=== PATIENT | female | born 1950 | race Caucasian/White ===

== ENCOUNTER 2017-10-11 13:39 | Inpatient (IN) | payer OTHER ==
[~2017-10-11] VITALS: Ht 170.2 cm; Wt 50.9 kg
--- NOTE | ~2017-10-11 | CON ---
[place], [place] REPORT OF CONSULTATION NAME: JOS BEDOYA UNIT #: [id number] ROOM: 524 DOCTOR: SANDY LAKE MD BIRTHDATE: [birth year] DOS: 10/13/2017 PSYCHIATRIC CONSULTATION CHIEF COMPLAINT: "They went over there, ya, I know him, that was ____." HISTORY OF PRESENT ILLNESS: This is a 66-year-old female who presented to the Emergency Room with a significant altered mental status. Apparently, she was found on the side of the road near her residence holding her dog. She was confused and speaking gibberish, nonsensical words. EMS brought her to the Emergency Room to be evaluated. She reports that she was taken to [place] by a man who now lives in [facility]. She was found to be very confused and muttering indiscernibly. Since her admission to the medical floor at [facility], she has continued to be extremely confused, lack safety awareness, does not necessarily redirect. She threw her food tray at the nurse and has required significant redirection and multiple PRNs. PAST MEDICAL HISTORY: Remarkable for being on clomipramine, clonazepam, Luvox and Effexor apparently at home as well as a combination of morphine with naltrexone. Unclear whether or not she has a significant substance abuse history or not. MENTAL STATUS: My mental status is limited because she is so grossly confused and was talking nonsensical. She was not able to answer a single one of my questions. She did respond to her name. Beyond that she attempted on multiple occasions to get out of bed, triggering her bed alarm. 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 PLAN: I have discontinued her Restoril to limit what medication she can potentially have. I will give p.r.n. orders of Ativan 1 mg p.o. or IM q. 4 hours as needed, Geodon 20 mg IM q. 4 hours max 40 mg in a day, also start her on Seroquel 50 mg t.i.d. and Depakote 500 mg t.i.d. in order to decrease some of this mood lability and impulsivity. Should that she not clear, she certainly would represent a good candidate for transfer to the [facility] for further organic workup and stabilization. SANDY LAKE MD CM:CONSTR:REPORT OF CONSULTATION 1112 10/13/17 1121 interface
[~2017-10-11 13:39] MED LIST: PERCOCET 325 MG1 TA2 PO; QUETIAPINE FUM200 M2 PO
[2017-10-11 13:40] VITALS: BP 140/72
[2017-10-11 14:17] LABS: BASO % 0.7 % (0.0-1.0); EOS % 0.7 % (1.0-4.0); HEMATOCRIT 37.5 % (37.0-47.0); HEMOGLOBIN 12.5 g/dl (12.0-16.0); LYMPH # 0.9 10*3/uL (1.3-4.4); LYMPH % 20.8 % (27.0-41.0); MEAN CELL VOLUME 94.2 fl (81.0-99.0); MEAN CORPUSCULAR HGB 31.4 pg (27.0-31.0); MEAN CORPUSCULAR HGB CONC 33.3 g/dl (33.0-37.0); MEAN PLATELET VOLUME 9.7 fl (9.6-12.3); MONO # 0.2 10*3/uL (0.1-1.0); MONO % 4.7 % (3.0-9.0); NEUT # 3.2 10*3/uL (2.3-7.9); NEUT % 72.9 % (47.0-73.0); PLATELET COUNT AUTOMATED 157 10*3/uL (130-400); RED BLOOD COUNT 3.98 10*6/uL (4.10-5.10); RED CELL DISTRI WIDTH 13.3 % (0-14.5); WHITE BLOOD COUNT 4.4 10*3/uL (4.8-10.8)
[2017-10-11 14:35] LABS: ALBUMIN 3.7 gm/dl (3.1-4.5); ALKALINE PHOSPHATASE 122 U/L (45-117); BUN 12 mg/dl (7-24); CHLORIDE 104 mmol/L (98-107); CREATININE 0.98 mg/dL (0.55-1.02); POTASSIUM 3.7 mmol/L (3.5-5.1); SGOT/AST 24 IU/L (3-35); SGPT/ALT 17 U/L (12-78); SODIUM 138 mmol/L (136-145); TOTAL PROTEIN 7.3 gm/dL (6.4-8.2)
[2017-10-11 14:36] VITALS: BP 151/73
[2017-10-11 14:39] LABS: ACETAMINOPHEN (TYLENOL) < 2.0 ug/ml (10-30); ETHYL ALCOHOL < 3.0 mg/dl (<3)
[2017-10-11 14:46] LABS: BILIRUBIN NEGATIVE (NEGATIVE); BLOOD NEGATIVE (NEGATIVE); CLARITY CLEAR (CLEAR); COLOR YELLOW (YELLOW); GLUCOSE NEGATIVE (NEGATIVE); KETONE 1+ (NEGATIVE); LEUKO ESTERASE 1+ (NEGATIVE); NITRITE NEGATIVE (NEGATIVE); UROBILINOGEN 0.2 E.U./dl (0.2-1.0)
[2017-10-11 14:55] LABS: BACTERIA 1+; EPITHELIAL CELLS TNTC; RBC 0-2 rbc/hpf (0-2); URINE AMPHETAMINES < 1000 (1000ng/ml); URINE BARBITURATES < 200 (200ng/ml); URINE BENZODIAZEPINES < 200 (200ng/ml); URINE CANNABINOIDS (THC) < 50 (50ng/ml); URINE COCAINE < 300 (300ng/ml); URINE METHADONE < 300 (300ng/ml); URINE OPIATES > 300 (300ng/ml)
[2017-10-11 15:00] LABS: URINE PHENCYCLIDINE < 25 (25ng/ml)
[2017-10-11 16:19] VITALS: BP 125/88
[2017-10-11 17:00] VITALS: BP 149/68
[2017-10-11] MEDS ORDERED: EFFEXOR XR150 MG PO (17:19)
[2017-10-11] MEDS ORDERED: KLONOPIN0.5 MG PO (17:19)
[2017-10-11] MEDS ORDERED: CELEBREX100 MG PO (17:20)
[2017-10-11] MEDS ORDERED: NEURONTIN800 MG PO (17:20)
[2017-10-11] MEDS ORDERED: FLUVOXAMINE100 MG PO (17:24)
[2017-10-11] MEDS ORDERED: EMBEDA ER 20-01 EACH PO (17:24)
[2017-10-11] MEDS ORDERED: Anafranil25 MG PO (17:25)
[2017-10-11 20:00] VITALS: BP 127/85
[2017-10-12] VITALS: BP 129/98
[2017-10-12 07:40] LABS: BASO % 0.3 % (0.0-1.0); EOS # 0.1 10*3/uL (0.0-0.4); EOS % 1.9 % (1.0-4.0); HEMATOCRIT 33.7 % (37.0-47.0); HEMOGLOBIN 11.4 g/dl (12.0-16.0); LYMPH # 1.4 10*3/uL (1.3-4.4); LYMPH % 22.8 % (27.0-41.0); MEAN CELL VOLUME 92.6 fl (81.0-99.0); MEAN CORPUSCULAR HGB 31.3 pg (27.0-31.0); MEAN CORPUSCULAR HGB CONC 33.8 g/dl (33.0-37.0); MEAN PLATELET VOLUME 10.2 fl (9.6-12.3); MONO # 0.5 10*3/uL (0.1-1.0); MONO % 8.2 % (3.0-9.0); NEUT # 4.2 10*3/uL (2.3-7.9); NEUT % 66.3 % (47.0-73.0); PLATELET COUNT AUTOMATED 156 10*3/uL (130-400); RED BLOOD COUNT 3.64 10*6/uL (4.10-5.10); RED CELL DISTRI WIDTH 13.3 % (0-14.5); WHITE BLOOD COUNT 6.3 10*3/uL (4.8-10.8)
[2017-10-12 08:00] VITALS: BP 138/83
[2017-10-12 08:04] LABS: ALBUMIN 3.1 gm/dl (3.1-4.5); BUN 12 mg/dl (7-24); CHLORIDE 108 mmol/L (98-107); CHOLESTEROL 132 mg/dL (<200); CREATININE 0.86 mg/dL (0.55-1.02); PHOSPHOROUS 2.8 mg/dL (2.5-4.9); POTASSIUM 3.3 mmol/L (3.5-5.1); SGOT/AST 17 IU/L (3-35); SGPT/ALT 12 U/L (12-78); SODIUM 140 mmol/L (136-145); TOTAL PROTEIN 6.3 gm/dL (6.4-8.2); TRIGLYCERIDES 48 mg/dl (<150); VLDL CHOLESTEROL 10 mg/dL (6-40)
[2017-10-12 08:10] LABS: ALKALINE PHOSPHATASE 105 U/L (45-117); HDL CHOLESTEROL 64 mg/dl (40-60); LDL CHOLESTEROL 58 mg/dL (9-159)
[2017-10-12 16:00] VITALS: BP 160/79
[2017-10-12 20:00] VITALS: BP 155/76
[2017-10-13] VITALS: BP 127/64
[2017-10-13 07:48] LABS: BASO % 0.7 % (0.0-1.0); EOS # 0.2 10*3/uL (0.0-0.4); EOS % 3.7 % (1.0-4.0); HEMATOCRIT 34.3 % (37.0-47.0); HEMOGLOBIN 11.5 g/dl (12.0-16.0); LYMPH # 1.5 10*3/uL (1.3-4.4); LYMPH % 38.1 % (27.0-41.0); MEAN CELL VOLUME 93.5 fl (81.0-99.0); MEAN CORPUSCULAR HGB 31.3 pg (27.0-31.0); MEAN CORPUSCULAR HGB CONC 33.5 g/dl (33.0-37.0); MEAN PLATELET VOLUME 10.3 fl (9.6-12.3); MONO # 0.4 10*3/uL (0.1-1.0); MONO % 9.5 % (3.0-9.0); NEUT # 1.9 10*3/uL (2.3-7.9); NEUT % 47.8 % (47.0-73.0); PLATELET COUNT AUTOMATED 161 10*3/uL (130-400); RED BLOOD COUNT 3.67 10*6/uL (4.10-5.10); RED CELL DISTRI WIDTH 13.5 % (0-14.5)
[2017-10-13 08:00] VITALS: BP 149/86
[2017-10-13 08:20] LABS: ALBUMIN 3.1 gm/dl (3.1-4.5); BUN 10 mg/dl (7-24); CHLORIDE 108 mmol/L (98-107); POTASSIUM 3.1 mmol/L (3.5-5.1); SGOT/AST 18 IU/L (3-35); SODIUM 142 mmol/L (136-145); TOTAL PROTEIN 6.1 gm/dL (6.4-8.2)
[2017-10-13 08:34] LABS: ALKALINE PHOSPHATASE 101 U/L (45-117); SGPT/ALT 13 U/L (12-78)
[2017-10-13 12:00] VITALS: BP 156/88
[2017-10-13 14:16] LABS: VITAMIN D, 25-HYDROXY 23.5 ng/mL (30-100)
[2017-10-13 16:00] VITALS: BP 140/79
[2017-10-13 20:00] VITALS: BP 163/69
[2017-10-14] VITALS: BP 157/80
[2017-10-14 08:00] VITALS: BP 136/71
[2017-10-14 12:00] VITALS: BP 112/74
[2017-10-14] MEDS ORDERED: DIVALPROEX SOD500 MG PO (15:27)
[2017-10-14] MEDS ORDERED: QUETIAPINE FUMA50 M1 PO (15:27)
[2017-10-14] MEDS ORDERED: DULCOLAX5 M1 PO (21:22)
== END 2017-10-14 16:31 | disposition home health service (06) | DRG 689 ==
LOC: ED → 5E 16:12 → EDHOLD 16:12 → 4E 16:27 → 5E 18:51
PROVIDERS: Internal Medicine; Nurse Practitioner Family; Psychiatry & Neurology Psychiatry
DX: N30.00 Acute cystitis without hematuria (principal); G93.41 Metabolic encephalopathy; R65.10 Systemic inflammatory response syndrome (SIRS) of non-infectious origin without acute organ dysfunction; F23 Brief psychotic disorder; Z68.1 Body mass index [BMI] 19.9 or less, adult; R00.0 Tachycardia, unspecified; R41.0 Disorientation, unspecified; R63.6 Underweight; R06.82 Tachypnea, not elsewhere classified; R03.0 Elevated blood-pressure reading, without diagnosis of hypertension; Z79.899 Other long term (current) drug therapy

== ENCOUNTER 2017-10-14 15:06 | Inpatient (IN) | payer OTHER ==
[~2017-10-14] VITALS: Ht 170.1 cm; Wt 50.8 kg
--- NOTE | ~2017-10-14 | PR ---
[place], [place] PROGRESS NOTE NAME: JOS BEDOYA UNIT #: [id number] ROOM: 311 DOCTOR: SANDY LAKE MD BIRTHDATE: [birth year] DOS: 10/23/2017 CHIEF COMPLAINT: "I just want some warmth." SUMMARY OF THE VISIT: The patient was sitting in the dining area, engaging in group activities. She stopped and engaged in brief conversation with me. She stated that she would just like some warmth. When I offered to get her blanket, she nodded; no she wanted to be outside in the sunshine. She is continuing to ask when she is going to be able to leave the hospital and go home. Attempts to reorient and educate her regarding the process that is occurring are met with her not understanding. She does not seem to remember the explanation from day to day. She continues to be grossly confused, especially for short term events. MENTAL STATUS: She is alert and oriented to person, place, not necessarily time. Mood does seem to be trending towards euthymia. Affect is more appropriate. There is no belén or psychosis. Short term memory continues to be problematic. PLAN: I will go ahead and increase Namenda to 10 mg in the morning and 5 mg at night, augmenting the effectiveness of the Exelon patch, continue to engage in individual and silva milieu activity, returning then to the least restrictive environment when psychiatrically stable. SANDY LAKE MD CM:PNTRANS 1102 1130 SANDY LAKE MD 10/23/17 1130 interface
--- NOTE | ~2017-10-14 | PR ---
[place], [place] PROGRESS NOTE NAME: JOS BEDOYA UNIT #: [id number] ROOM: 309 DOCTOR: SANDY LAKE MD BIRTHDATE: [birth year] DOS: 10/17/2017 CHIEF COMPLAINT: "Yeah, I am in some pain, but I don't wanna be drugged up." SUMMARY OF THE VISIT: The patient was interviewed as she sat in the dining area at the end of the room on a couch. She engaged readily in conversation. She continues to be very vague, though, somewhat evasive. She has a hard time filling in details and she does confabulate some. She is pleasant for the most part, mildly blunted and depressed. MENTAL STATUS: She is alert and oriented to person, place, but not necessarily time. Mood does still seem to be depressed with anxious overtones. She has a great deal of processing difficulty and short term memory remains poor. PLAN: I will go ahead and check a valproic acid level in the a.m. to ensure that it is therapeutic. Given her cognitive loss, I will start her on Exelon patch 4.6 mg a day, maintain her other psychotropics, engage in individual and silva milieu activity, returning to the least restrictive environment when stable. SANDY LAKE MD CM:PNTRANS 7 SANDY LAKE MD 10/17/1738 interface
--- NOTE | ~2017-10-14 | PR ---
[place], [place] PROGRESS NOTE NAME: JOS BEDOYA UNIT #: [id number] ROOM: 317 DOCTOR: SANDY LAKE MD BIRTHDATE: [birth year] DOS: 10/20/2017 CHIEF COMPLAINT: "I am not sleeping, but I do want to go home." HISTORY OF THE VISIT: The patient was interviewed in the dining area. She first complained to me that she did not sleep well last night and then also complained that she has persistent diarrhea. Otherwise, she is very fixated on going home. She has little to no insight into her behavior or to the events that led to her being admitted here. MENTAL STATUS: She is alert and oriented to person, place, not necessarily time. Mood does seem to be trending more towards euthymia, although there is a depressive component present that I am noticing is more prevalent. There is no hypomania or belén. There are no overt auditory or visual hallucinations. Short term memory is exceptionally poor. PLAN: I will augment her Exelon patch with Namenda 5 mg at bedtime. I will add Remeron 15 mg at bedtime to improve sleep and appetite and combat depression and renew her p.r.n. Ativan in case she requires intervention. We will continue to engage her in individual and silva milieu activity, returning to the least restrictive environment when stable. SANDY LAKE MD CM:PNTRANS 1028 1033 SANDY LAKE MD 10/20/17 1033 interface
--- NOTE | ~2017-10-14 | PR ---
[place], [place] PROGRESS NOTE NAME: JOS BEDOYA UNIT #: [id number] ROOM: 317 DOCTOR: SANDY LAKE MD BIRTHDATE: [birth year] DOS: 10/19/2017 CHIEF COMPLAINT: "I just want to go home." SUMMARY OF THE VISIT: The patient was interviewed in her room. She was sitting at the edge of the bed and got up, walked me to the door. She reports that she is feeling better, could not tell me how long she has been here or what she had for breakfast, but states she is ready to go home. When I told her that this would not happen today, she was fine and did not push the issue. She continues for the most part to have gaps in memory. MENTAL STATUS: She is alert and oriented with time gaps. Mood does seem to be improving and is more stable. There is no hypomania, belén or psychosis. Short term memory has gaps. PLAN: I will go ahead and increase the Exelon patch to its maximum dose of 13.3 mg a day and then next consider augmenting with Namenda. At this point, we are awaiting ____ and all of the paperwork that needs to be done in order to get her safely placed into a long-term care facility. SANDY LAKE MD CM:PNTRANS 1040 1046 SANDY LAKE MD 10/19/17 1045 interface
--- NOTE | ~2017-10-14 | WRIGHTHP ---
[place], [place] PATIENT HISTORY AND PHYSICAL EXAM [id number] UNIT #: [id number] ROOM: 309 DOCTOR: SANDY LAKE MD BIRTHDATE: [birth year] DOS: 10/15/2017 INITIAL PSYCHIATRIC EVALUATION CHIEF COMPLAINT: "Yes, I remember you from the day I came in." HISTORY OF PRESENT ILLNESS: This is a 66-year-old white female who initially presented to the Emergency Room at [facility] with a significant altered mental status. She was apparently found by the side of the road near her residence holding her dog. She was extremely confused and speaking gibberish and nonsensical words. EMS brought her to the Emergency Room to be evaluated. When she was there, she was found to be extremely disorganized and grossly psychotic. She reports that she was taken to [place] by a man who now lives in [facility]. She was very confused and was muttering indiscernibly. She was admitted to the medical floor for further evaluation and was found to have a mild UTI, but otherwise nothing remarkable was found. While on the medical floor, she was extremely combative and resistive to care and several code violets were called. She also required multiple p.r.n. interventions in order to prevent harm to self and others. She has subsequently now been transferred to the psychiatric unit to rule out further organic factors, to stabilize on medication and then to determine the least restrictive environment to which she should be discharged to. PAST MEDICAL HISTORY: Remarkable for her having seen Jeanne Rodriguez at ____ office and most recently was prescribed ____ Klonopin, Luvox and Effexor. MENTAL STATUS EXAMINATION: This morning, the patient is alert and oriented to person, place and relatively to time. She does have a marked processing slowness and it takes her a long time to be able to answer questions. There also is a baseline paranoia and she refused to answer certain questions and tended to try to deflect her responses. At one point she just flat out stated that she is not a morning person and would prefer not to talk anymore. DIAGNOSIS: Brief psychotic disorder. PLAN: I have discontinued all of her previous psychotropics and started her on Depakote 500 mg 3 times a day as well as Risperdal M-Tab 1 mg twice daily. I will attempt to obtain her old records from ____ office to ascertain what her baseline psychiatric condition is. We will attempt to engage her in individual and silva milieu activity with the plan to discharge to the least restrictive environment when psychiatrically stable. [place], [place] PATIENT HISTORY AND PHYSICAL EXAM NAME: JOS BEDOYA UNIT #: [id number] ROOM: 309 DOCTOR: SANDY LAKE MD BIRTHDATE: [birth year] SANDY LAKE MD CM:HISPHYS:PATIENT HISTORY AND PHYSICAL EXAMINATION 0910 1002 SANDY LAKE MD 10/15/17 1127 interface
--- NOTE | ~2017-10-14 | PR ---
[place], [place] PROGRESS NOTE NAME: JOS BEDOYA UNIT #: [id number] ROOM: 309 DOCTOR: SANDY LAKE MD BIRTHDATE: [birth year] DOS: 10/18/2017 CHIEF COMPLAINT: "I guess I want my breakfast, thank you." SUMMARY OF THE VISIT: The patient was interviewed as she sat eating her breakfast in the dining area. She engaged in brief but superficial conversation. She lacks spontaneity. She continues to be grossly confused and disorganized in her thinking. She needs a great deal of support and redirection in order to attend to her ADLs and to do basic daily living necessities. She does seem to be tolerating the current medication regimen well and I see no sedation, somnolence, extrapyramidal symptoms or any other side effects. MENTAL STATUS: She is alert and oriented to person, possibly place, not time. Mood does seem to be still somewhat labile at times, although she is redirectable. There is no belén or hypomania and there is no gross psychosis. Short term memory remains poor. PLAN: Her valproic acid level is mildly elevated at 109.2. I will lower the dose from 500 mg 3 times a day to 250 mg twice a day and 500 mg at bedtime to see if we can bring the level more into an acceptable range. We will increase her Exelon patch from 4.6 to 9.5 mg a day. Continue to engage in individual and silva milieu activity, returning to the least restrictive environment when psychiatrically stable. SANDY LAKE MD CM:PNTRANS 0915 SANDY LAKE MD 10/18/17 0914 interface
--- NOTE | ~2017-10-14 | PR ---
[place], [place] PROGRESS NOTE NAME: [id number] UNIT #: [id number] ROOM: 311 DOCTOR: SANDY LAKE MD BIRTHDATE: [birth year] DOS: 10/25/2017 CHIEF COMPLAINT: "What do you mean I'm not going home now, that is a bunch of bullshit." SUMMARY OF THE VISIT: The patient was interviewed as she was sitting on her bed. She engaged readily in conversation. She first asked me when she was going home. When I did tell her, I wanted to put her on a self modification program to make certain that she could adequately take her medications, she angrily snapped back at me that this was a bunch of bullshit. I have deep concerns that this patient is able to meet her basic needs. She lives alone. I do not see her having the abilities to cook, clean and care for herself, least of be able to even take her medications appropriately without under dosing or overdosing on them. MENTAL STATUS: She is alert and oriented to person, place, not necessarily to time. She could not tell me how long she has been here in the hospital, nor could she tell me what she had for breakfast. Her mood continues to be somewhat brighter and she is more engaging in conversation. I do believe that some of this is because she has been on her medicines correctly and is receiving 3 meals a day. There are no signs suggestive of belén or psychosis. There is significant short-term memory loss. PLAN: At this point is to maintain her current psychotropic regimen as she is deriving benefits without side effects. At this point, the patient will remain here in the hospital until such time as we can find an adequate place to discharge her safely. SANDY LAKE MD CM:PNTRANS 1123 1403 SANDY LAKE MD 10/25/17 1402 interface
--- NOTE | ~2017-10-14 | PR ---
[place], [place] PROGRESS NOTE NAME: JOS BEDOYA UNIT #: [id number] ROOM: 309 DOCTOR: NATY DARNELL DO BIRTHDATE: [birth year] DOS: 10/16/2017 CHIEF COMPLAINT: "I want to go home." SUMMARY OF THE VISIT: The patient was interviewed in the dining room. She states that she slept poorly. According to staff, she remains confused. Dr. Mata had seen her yesterday for evaluation of competency. She states that she wants to go home. She is compliant with her medications here; however, she needs assistance in taking her meds as she has poor compliance with medication previously. MENTAL STATUS EXAMINATION: The patient is alert and oriented to person, place, but not to time. She does have marked slowness in her speech with needing additional time to be able to answer. There is some paranoia and she stated that she could not answer certain questions. PLAN: We will continue her current psychotropic regimen at this time. Dr. Mata recommended that the patient have an emergency guardianship. We will arrange with social work to make this possible and arranging with family. Until that time, we will continue to engage her in individual and group activities with a plan to return her to the least restrictive environment when psychiatrically stable. NATY DARNELL DO SANDY LAKE MD CM:PNADRIAN 0 [id number] NATY DARNELL DO 10/16/17 1043 interface
--- NOTE | ~2017-10-14 | PR ---
[place], [place] PROGRESS NOTE NAME: JOS BEDOYA UNIT #: [id number] ROOM: 311 DOCTOR: SANDY LAKE MD BIRTHDATE: [birth year] DOS: 10/24/2017 CHIEF COMPLAINT: "I hope I am ready to go home soon." SUMMARY OF THE VISIT: The patient was interviewed in her room. She was sitting at the edge of her bed, got up to approach me, then sat back down. She reports that she is feeling well and is ready to go home. She still exhibits some gaps in memory, but overall she has trended greatly towards improvement. MENTAL STATUS: She is alert and oriented to person, place, but not time. Mood seems to be strongly trending towards euthymia. Affect is much more appropriate. There is no belén, hypomania or psychosis. Short term memory continues to have gaps, otherwise she is intact. PLAN: I will maximize out the dose of Namenda, bringing it to 10 mg b.i.d., continue to support and monitor, continue to engage in individual and silva milieu activity, returning to the least restrictive environment when stable. SANDY LAKE MD CM:PNTRANS 1111 1154 SANDY LAKE MD 10/24/17 1153 interface
--- NOTE | ~2017-10-14 | DS ---
[place], [place] DISCHARGE SUMMARY NAME: [id number] UNIT #: [id number] ROOM: 311 DOCTOR: SANDY LAKE MD BIRTHDATE: [birth year] DOS: 10/22/2017 CHIEF COMPLAINT: "Yes, I remember you from the day I came in." HISTORY OF PRESENT ILLNESS: This is a 66-year-old white female who initially presented to the Emergency Room at [facility] with a significant altered mental status. The patient was apparently found by the side of the road near her residence holding her dog. She was extremely confused and speaking gibberish and nonsensical words. EMS brought her to the Emergency Room to be evaluated. Once there, she was extremely disorganized and grossly psychotic. She reported that she was taken to [place] by a man who now lives in [facility]. She was very confused in the Emergency Room and was muttering indiscernibly. She was admitted initially to the medical floor for further evaluation and was found to have a mild UTI, but otherwise her exam was unremarkable. While on the medical floor, she was extremely combative and resistive to care and several code had to be called in order to prevent her from hurting herself or others. She did require multiple p.r.n. interventions in order also to prevent harm to self and others. She was subsequently transferred then to the [facility] to further evaluate her to rule out any other organic factors and to stabilize on medication while engaging her in individual and silva milieu activities. PAST MEDICAL HISTORY: Remarkable for her following with a nurse practitioner at Dr. Wall's office. She was prescribed a plethora of antidepressants and benzodiazepines. SUMMARY OF HOSPITAL COURSE: The patient was admitted to the unit where she had her previous psychotropics all discontinued. She was started on Risperdal M-Tab 1 mg twice daily and Depakote 500 mg 3 times daily. These were utilized to stabilize her mood and to prevent the excessive mood lability that was so prevalent. Additionally, it was felt that she was exhibiting significant cognitive decline and she was not able to remember short term events. For this reason, both Exelon patch and Namenda were started. Exelon was rapidly titrated up to its maximum dose of 13.3 mg a day while the Namenda was brought up to 5 mg twice daily. She tolerated this combination of medications well. Dr. Everett Mata, psychologist, was consulted to determine whether or not she was competent to make decisions. He deemed her incompetent of making decisions and application for emergency guardianship was obtained. This was granted and the patient was eventually discharged from the [facility] into a long-term care facility to receive further care. MENTAL STATUS AT DISCHARGE: The patient is alert and oriented to person, possibly place, not to time. Mood does seem to be strongly trending towards euthymia. Affect is more appropriate. There are no symptoms of belén, hypomania or psychosis. She does process information slowly. Short term memory remains exceptionally poor. DIAGNOSES AT DISCHARGE DIAGNOSES: Major depression, recurrent with psychotic features and Alzheimer's dementia. [place], [place] DISCHARGE SUMMARY NAME: JOS BEDOYA UNIT #: [id number] ROOM: [facility] DOCTOR: SANDY LAKE MD BIRTHDATE: [birth year] DISPOSITION: The patient is to go to a local long-term care facility. Her prescriptions have been printed and will be sent with her. She is medically stable, psychiatrically stable. Her biopsychosocial needs will be adequately met by the long-term care facility. SANDY LAKE MD CM:LEOPOLDO 1019 1034 SANDY LAKE MD 10/22/17 1033 interface
--- NOTE | ~2017-10-14 | PR ---
[place], [place] PROGRESS NOTE NAME: JOS BEDOYA UNIT #: [id number] ROOM: 311 DOCTOR: SANDY LAKE MD BIRTHDATE: [birth year] DOS: 10/21/2017 CHIEF COMPLAINT: Breakfast is good, I am ready to go though." SUMMARY OF THE VISIT: The patient was interviewed as she was finishing her breakfast in the dining area. She engaged in brief, but superficial conversation. She really lacks spontaneity and just tended to respond to the questions that were asked and even then briefly so. She is fixated on still leaving this despite being served papers that she has a formal guardian in place. She does not seem to recall this. MENTAL STATUS: She is alert and oriented with time gaps. Mood does seem to be more euthymic. Affect is more appropriate. There is no belén, hypomania or gross psychosis noted. Short term memory is exceptionally poor. She does process slowly as well. PLAN: I will renew her p.r.n. Ativan in case she requires intervention. I will continue to increase the Namenda, bringing it up to 5 mg twice daily, engage in individual and silva milieu activity, returning to the least restrictive environment when stable. SANDY LAKE MD CM:PNTRANS 0938 SANDY LAKE MD 10/21/17 0942 interface
--- NOTE | ~2017-10-14 | CON ---
[place], [place] REPORT OF CONSULTATION [facility]: [id number] UNIT #: [id number] ROOM: 309 DOCTOR: JACOB REYES ED.D (FAITH) BIRTHDATE: [birth year] DOS: 10/15/2017 HISTORY OF PRESENT ILLNESS: The patient is a 66-year-old female referred by Dr. Lake for competency evaluation. At the present time, this patient is on the [facility] at [facility]. She is and has two daughters but she has very little contact with her family. Her sister, Jeny Landis, does provide some assistance for the patient. The patient one time worked at a [employer] in [place], [place]. She is now on social security disability. Her family physician is Dr. Franklin and her medical history is pertinent for urinary tract infection, traumatic brain injury, brief psychotic disorder and chronic pain. Her medications include Celebrex, Anafranil, Neurontin, Embeda, Depakote and Risperdal. She denies any substance abuse issues, but does smoke 1/2 pack of cigarettes per day. This patient was awake, alert and oriented to person and place. She was not oriented to time. Overall, she did fairly well at times during the interview, but other times she was quite confused. Her short and long-term memory were impaired. Her insight, judgment and concentration are very poor. In my opinion, this patient is not really competent to make informed healthcare decisions. I had a lengthy conversation with her sister, Jeny, and she indicated that the [facility] has [facility] some [facility]. She is not taking her medications adequately or correctly and is unable to provide any type of self-care. Her sister indicates that the condition has worsened over the past few months and she is clearly not able to live independently. With that in mind, I did complete emergency guardianship papers for this patient. DIAGNOSES: 1. Brief psychotic disorder. 2. Delirium. 3. Minor neurocognitive disorder-traumatic brain injury. RECOMMENDATIONS: In my opinion, this patient needs a guardian. Thank you very much for this consult. JACOB REYES ED.D CM:CONSTR:REPORT OF CONSULTATION 1841 10/15/17 2323 interface SANDY LAKE MD
[~2017-10-14 15:06] MED LIST changes: +Anafranil25 MG PO; +CELEBREX100 MG PO; +EFFEXOR XR150 MG PO; +EMBEDA ER 20-01 EACH PO; +FLUVOXAMINE100 MG PO; +KLONOPIN0.5 MG PO; +NEURONTIN800 MG PO
[2017-10-14] MEDS ORDERED: DIVALPROEX SOD500 MG PO (15:27)
[2017-10-14] MEDS ORDERED: QUETIAPINE FUMA50 M1 PO (15:27)
[2017-10-14 18:14] VITALS: BP 128/72
[2017-10-14 18:26] VITALS: BP 128/72
[2017-10-14 20:00] VITALS: BP 148/82
[2017-10-14] MEDS ORDERED: DULCOLAX5 M1 PO (21:22)
[2017-10-15 06:23] LABS: BASO % 0.4 % (0.0-1.0); EOS # 0.2 10*3/uL (0.0-0.4); EOS % 4.7 % (1.0-4.0); HEMATOCRIT 39.2 % (37.0-47.0); LYMPH % 41.3 % (27.0-41.0); MEAN CELL VOLUME 94.2 fl (81.0-99.0); MEAN CORPUSCULAR HGB 31.3 pg (27.0-31.0); MEAN CORPUSCULAR HGB CONC 33.2 g/dl (33.0-37.0); MONO # 0.4 10*3/uL (0.1-1.0); NEUT # 2.2 10*3/uL (2.3-7.9); NEUT % 45.4 % (47.0-73.0); PLATELET COUNT AUTOMATED 180 10*3/uL (130-400); RED BLOOD COUNT 4.16 10*6/uL (4.10-5.10); RED CELL DISTRI WIDTH 13.5 % (0-14.5); WHITE BLOOD COUNT 4.9 10*3/uL (4.8-10.8)
[2017-10-15 07:01] LABS: ALBUMIN 3.1 gm/dl (3.1-4.5); ALKALINE PHOSPHATASE 116 U/L (45-117); BUN 14 mg/dl (7-24); CHLORIDE 105 mmol/L (98-107); CREATININE 0.88 mg/dL (0.55-1.02); POTASSIUM 3.5 mmol/L (3.5-5.1); SGOT/AST 18 IU/L (3-35); SGPT/ALT 16 U/L (12-78); SODIUM 143 mmol/L (136-145); TOTAL PROTEIN 6.2 gm/dL (6.4-8.2)
[2017-10-15 07:50] VITALS: BP 140/85
[2017-10-15 09:02] LABS: VITAMIN D, 25-HYDROXY 20.6 ng/mL (30-100)
[2017-10-15 20:00] VITALS: BP 159/76
[2017-10-16 07:41] VITALS: BP 140/82
[2017-10-16 07:46] VITALS: BP 140/82
[2017-10-16 20:00] VITALS: BP 152/82
[2017-10-17 07:48] VITALS: BP 141/86
[2017-10-17 19:33] VITALS: BP 136/72
[2017-10-18 07:49] VITALS: BP 152/86
[2017-10-18 20:00] VITALS: BP 135/90
[2017-10-19 08:04] VITALS: BP 156/74
[2017-10-19 20:00] VITALS: BP 148/77
[2017-10-20 07:51] VITALS: BP 143/77
[2017-10-20 20:20] VITALS: BP 155/89
[2017-10-21 07:35] VITALS: BP 132/68
[2017-10-21 20:43] VITALS: BP 150/79
[2017-10-22 07:46] VITALS: BP 124/65
[2017-10-22] MEDS ORDERED: NAMENDA-5 PO (10:01)
[2017-10-22] MEDS ORDERED: MIRTAZAPINE15 M2 PO (10:01)
[2017-10-22] MEDS ORDERED: DIVALPROEX SOD500 MG PO (10:01)
[2017-10-22] MEDS ORDERED: EXELON13.3 MG/21 T (10:01)
[2017-10-22] MEDS ORDERED: DIVALPROEX SOD250 MG PO (10:01)
[2017-10-22] MEDS ORDERED: RISPERIDONE M-TA1 MG BC (10:01)
[2017-10-22 20:00] VITALS: BP 154/89
[2017-10-23 07:53] VITALS: BP 129/70
[2017-10-23 21:24] VITALS: BP 151/84
[2017-10-24 07:51] VITALS: BP 143/83
[2017-10-24 20:00] VITALS: BP 143/80
[2017-10-25 07:37] VITALS: BP 131/74
[2017-10-25 19:30] VITALS: BP 132/78
== END 2017-10-25 20:50 | DRG 885 ==
LOC: 3N 15:06
PROVIDERS: Psychiatry & Neurology Psychiatry
DX: F23 Brief psychotic disorder (principal); F33.3 Major depressive disorder, recurrent, severe with psychotic symptoms; G30.9 Alzheimer's disease, unspecified; F02.80 Dementia in other diseases classified elsewhere, unspecified severity, without behavioral disturbance, psychotic disturbance, mood disturbance, and anxiety; Z68.1 Body mass index [BMI] 19.9 or less, adult; E83.41 Hypermagnesemia; S06.890A Other specified intracranial injury without loss of consciousness, initial encounter; D32.9 Benign neoplasm of meninges, unspecified; M51.37 Other intervertebral disc degeneration, lumbosacral region; Z71.6 Tobacco abuse counseling; R41.0 Disorientation, unspecified; R41.9 Unspecified symptoms and signs involving cognitive functions and awareness; X58.XXXA Exposure to other specified factors, initial encounter; Y93.89 Activity, other specified; Y92.89 Other specified places as the place of occurrence of the external cause; Y99.8 Other external cause status; F17.210 Nicotine dependence, cigarettes, uncomplicated; F17.200 Nicotine dependence, unspecified, uncomplicated; Z82.49 Family history of ischemic heart disease and other diseases of the circulatory system; Z80.0 Family history of malignant neoplasm of digestive organs; Z79.899 Other long term (current) drug therapy; R63.6 Underweight

== ENCOUNTER → 2019-02-25 | Outpatient (CLI) | payer OTHER ==
[~2019-02-25] MED LIST changes: +DIVALPROEX SOD250 MG PO; +DIVALPROEX SOD500 MG PO; +DULCOLAX5 M1 PO; +EXELON13.3 MG/21 T; +MIRTAZAPINE15 M2 PO; +NAMENDA-5 PO; +QUETIAPINE FUMA50 M1 PO; +RISPERIDONE M-TA1 MG BC
== END | disposition home or self-care (01) ==
LOC: MAMMO 14:11
DX: Z12.31 Encounter for screening mammogram for malignant neoplasm of breast (principal)

== ENCOUNTER → 2020-08-30 | Outpatient (CLI) | payer OTHER | END | disposition home or self-care (01) | LOC: RAD 16:44 | PROVIDERS: ATTEND Nurse Practitioner Primary Care | DX: J98.4 Other disorders of lung (principal); R06.02 Shortness of breath ==

== ENCOUNTER → 2020-09-22 | Outpatient (CLI) | payer OTHER | END | disposition home or self-care (01) | LOC: CARD 12:00 | PROVIDERS: ATTEND Internal Medicine Cardiovascular Disease | DX: R06.02 Shortness of breath (principal); R00.2 Palpitations ==

== ENCOUNTER → 2020-10-18 | Outpatient (CLI) | payer OTHER | END | disposition home or self-care (01) | LOC: CT 12:55 | PROVIDERS: ATTEND Nurse Practitioner Primary Care | DX: I67.82 Cerebral ischemia (principal); I63.12 Cerebral infarction due to embolism of basilar artery; G24.01 Drug induced subacute dyskinesia; G31.89 Other specified degenerative diseases of nervous system ==

== ENCOUNTER → 2020-11-23 | Outpatient (CLI) | payer OTHER | END | disposition home or self-care (01) | LOC: CT 13:00 | PROVIDERS: ATTEND Internal Medicine Critical Care Medicine | DX: J84.113 Idiopathic non-specific interstitial pneumonitis (principal); Q27.39 Arteriovenous malformation, other site ==

== ENCOUNTER → 2020-12-15 | Outpatient (CLI) | payer OTHER | END | disposition home or self-care (01) | LOC: US 14:30 | PROVIDERS: ATTEND Nurse Practitioner Primary Care | DX: M79.604 Pain in right leg (principal); M79.89 Other specified soft tissue disorders ==

== ENCOUNTER → 2020-12-19 | Outpatient (CLI) | payer OTHER | END | disposition home or self-care (01) | LOC: RAD 20:13 | PROVIDERS: ATTEND Nurse Practitioner Primary Care | DX: M17.11 Unilateral primary osteoarthritis, right knee (principal); M25.461 Effusion, right knee; M25.761 Osteophyte, right knee ==

== ENCOUNTER → 2021-05-04 | Outpatient (CLI) | payer OTHER | END | disposition home or self-care (01) | LOC: LAB 15:24 | PROVIDERS: ATTEND Nurse Practitioner Primary Care | DX: R19.7 Diarrhea, unspecified (principal) ==

== ENCOUNTER → 2022-04-13 | Outpatient (CLI) | payer OTHER | END | disposition home or self-care (01) | LOC: CT 09:00 | PROVIDERS: ATTEND Nurse Practitioner Primary Care | DX: J43.8 Other emphysema (principal); Q25.72 Congenital pulmonary arteriovenous malformation ==

== ENCOUNTER 2024-07-20 10:56 | Emergency (ER) | payer OTHER ==
[~2024-07-20] VITALS: Wt 76.2 kg
[2024-07-20] MEDS ORDERED: Tdap Vaccine 0.5 ML SYR (Adult Vaccine) IM ONE (11:10)
[2024-07-20 11:31] LABS: BASO % 0.6 % (0.0-1.0); EOS # 0.2 10*3/uL (0.0-0.4); EOS % 2.8 % (1.0-4.0); HEMATOCRIT 40.2 % (37.0-47.0); MEAN CELL VOLUME 100.2 fl (81.0-99.0); MEAN CORPUSCULAR HGB 32.4 pg (27.0-31.0); MEAN CORPUSCULAR HGB CONC 32.3 g/dl (33.0-37.0); MONO # 0.6 10*3/uL (0.1-1.0); MONO % 9.5 % (3.0-9.0); NEUT # 2.7 10*3/uL (2.3-7.9); NEUT % 39.7 % (47.0-73.0); PLATELET COUNT AUTOMATED 210 10*3/uL (130-400); RED BLOOD COUNT 4.01 10*6/uL (4.10-5.10); RED CELL DISTRI WIDTH 12.7 % (0-14.5); WHITE BLOOD COUNT 6.7 10*3/uL (4.8-10.8)
[2024-07-20 11:42] LABS: ACT PARTIAL THROMBO TIME 22.4 SECONDS (20.0-32.1)
[2024-07-20 12:16] LABS: ALKALINE PHOSPHATASE 103 U/L (46-116); BUN 16 mg/dl (9-23); CHLORIDE 107 mmol/L (98-107); LIPASE 36 U/L (12-53); POTASSIUM 3.8 mmol/L (3.4-5.1); SGPT/ALT 19 U/L (5-49); TOTAL PROTEIN 6.5 gm/dL (6.0-8.0)
[2024-07-20] MEDS ORDERED: MORPHINE Sulfate 2 MG/ML SYR IV ONE (13:45)
[2024-07-20] MEDS ORDERED: PERCOCET 5-3251 EACH PO (13:58)
[2024-07-20] MEDS ORDERED: Bacitracin Zinc 14 GM TUBE T ONE (14:00)
== END 2024-07-20 14:23 | disposition home or self-care (01) ==
LOC: ED 10:56
PROVIDERS: Internal Medicine
DX: S92.002A Unspecified fracture of left calcaneus, initial encounter for closed fracture (principal); S51.812A Laceration without foreign body of left forearm, initial encounter; S00.81XA Abrasion of other part of head, initial encounter; R51.9 Headache, unspecified; M54.2 Cervicalgia; F17.200 Nicotine dependence, unspecified, uncomplicated; Z79.899 Other long term (current) drug therapy; V43.52XA Car driver injured in collision with other type car in traffic accident, initial encounter; Y93.I9 Activity, other involving external motion; Y92.488 Other paved roadways as the place of occurrence of the external cause; Y99.8 Other external cause status